=== PATIENT | male | born 1940 | race Caucasian/White ===

== ENCOUNTER 2023-01-10 15:04 | Outpatient (CLI) | payer MEDICARE, OTHER | END 2023-01-10 23:59 | disposition home or self-care (01) | LOC: RAD 15:04 | PROVIDERS: ATTEND Psychiatry & Neurology Neurology | DX: G20.B1 Parkinson's disease with dyskinesia, without mention of fluctuations (principal); R13.12 Dysphagia, oropharyngeal phase; R47.1 Dysarthria and anarthria; R49.0 Dysphonia | CPT/HCPCS: 74230 ==